=== PATIENT | male | born 1940 | race Hispanic/Latino ===

== ENCOUNTER → 2018-03-02 | Outpatient (CLI) | payer MEDICARE | END | disposition home or self-care (01) | LOC: SHCH 15:47 | PROVIDERS: ATTEND Internal Medicine Cardiovascular Disease | DX: I35.1 Nonrheumatic aortic (valve) insufficiency (principal); I48.0 Paroxysmal atrial fibrillation; I10 Essential (primary) hypertension; E11.9 Type 2 diabetes mellitus without complications | CPT/HCPCS: 93306 ==

== ENCOUNTER → 2018-04-07 | Outpatient (CLI) | payer MEDICARE ==
[~2018-04-07] MED LIST: REGADENOSON 0.4 MG/5 ML PF SYG IVP SCH
== END | disposition home or self-care (01) ==
LOC: SHCH 07:47
PROVIDERS: ATTEND Internal Medicine Cardiovascular Disease
DX: R06.09 Other forms of dyspnea (principal); I20.9 Angina pectoris, unspecified; I48.0 Paroxysmal atrial fibrillation
CPT/HCPCS: 78452; 93017; 96374; A9500 ×2; J2785

== ENCOUNTER 2019-03-06 14:46 | Emergency (ER) | payer MEDICARE ==
[~2019-03-06 14:46] MED LIST changes: +AMLO10TA7 PO; +CARV3.1262 PO; +DABI150C PO; +DOXA4TAB3 PO; +LEVO25TA54 PO; +LEVO500T2 PO; +LOSA1TAB37 PO; +METF-446 PO; +METR500T PO; -REGADENOSON 0.4 MG/5 ML PF SYG IVP SCH
[2019-03-06 15:50] LABS: BASOPHILS % (AUTO) 0.7 % (0.0-5.0); EOSINOPHILS % (AUTO) 1.3 % (0.0-8.0); HEMATOCRIT 41.3 % (42-54); LYMPHOCYTES % (AUTO) 12.1 % (21.0-51.0); MEAN CORPUSCULAR HEMOGLOBIN 28.4 pg (27.0-33.0); MEAN CORPUSCULAR HGB CONC 34.2 g/dL (32.0-36.0); MEAN CORPUSCULAR VOLUME 83.2 fL (79-99); NEUTROPHILS % (AUTO) 78.9 % (40.0-77.0); PLATELET COUNT (AUTO) 214 K/uL (130-400); RED BLOOD CELL COUNT(AUTO) 4.96 MIL/uL (4.50-6.20); RED CELL DISTRIBUTION WIDTH 16.1 % (11.0-15.5); WHITE BLOOD COUNT (AUTO) 8.1 K/uL (4.8-10.8)
[2019-03-06 16:05] LABS: CREATININE 1.1 mg/dL (0.5-1.5); POTASSIUM 3.5 mmol/L (3.5-5.1)
[2019-03-06 16:10] LABS: BILIRUBIN,DIRECT 0.1 mg/dL (0.0-0.3); BILIRUBIN,TOTAL 0.4 mg/dL (0.2-1.0); TOTAL PROTEIN, SERUM 6.4 g/dL (6.0-8.3)
[2019-03-06 16:27] LABS: B-TYPE NATRIURETIC PEPTIDE 264 pg/mL (0-100)
[2019-03-06] MEDS ORDERED: SODIUM CHLORIDE 0.9% 1000ML 1,000 ML IV ONE (17:46)
== END 2019-03-06 18:37 | disposition home or self-care (01) ==
LOC: EDH 14:46
DX: E86.9 Volume depletion, unspecified (principal); R63.0 Anorexia; R11.2 Nausea with vomiting, unspecified; I48.91 Unspecified atrial fibrillation; I10 Essential (primary) hypertension; E11.9 Type 2 diabetes mellitus without complications
CPT/HCPCS: 36415; 80048; 80076; 82550; 83880; 84484; 85025; 93005; 99285; J7030

== ENCOUNTER 2022-10-22 09:21 | Emergency (ER) | payer OTHER ==
[~2022-10-22] VITALS: Ht 152.4 cm; Wt 73.5 kg
[~2022-10-22 09:21] MED LIST changes: +AMLO-258 PO; -AMLO10TA7 PO; +APIX5TAB PO; -CARV3.1262 PO; -DABI150C PO; +FINA5TAB41 PO; +IPRNEB IH; -LEVO500T2 PO; +LORA10TA7 PO; -LOSA1TAB37 PO; +METO50TA9 PO; -METR500T PO; +OLME20TA22 PO
[2022-10-22 09:52] LABS: BASOPHILS % (AUTO) 0.6 % (0.0-5.0); EOSINOPHILS % (AUTO) 1.8 % (0.0-8.0); HEMATOCRIT 33.2 % (42-54); LYMPHOCYTES % (AUTO) 9.2 % (21.0-51.0); MEAN CORPUSCULAR HEMOGLOBIN 25.6 pg (27.0-33.0); MEAN CORPUSCULAR HGB CONC 32.2 g/dL (32.0-36.0); MEAN CORPUSCULAR VOLUME 79.4 fL (79-99); MONOCYTES % (AUTO) 8.8 % (3.0-13.0); NEUTROPHILS % (AUTO) 79.2 % (40.0-77.0); PLATELET COUNT (AUTO) 173 K/uL (130-400); RED BLOOD CELL COUNT(AUTO) 4.18 MIL/uL (4.50-6.20); WHITE BLOOD COUNT (AUTO) 7.7 K/uL (4.8-10.8)
[2022-10-22 10:17] LABS: ALBUMIN 3.5 g/dL (3.5-5.0); B-TYPE NATRIURETIC PEPTIDE 331 pg/mL (0-100); MAGNESIUM 1.4 mg/dL (1.80-2.40); POTASSIUM 4.9 mmol/L (3.5-5.1); TOTAL PROTEIN, SERUM 6.9 g/dL (6.0-8.3)
[2022-10-22] MEDS ORDERED: LACT10SO5 PO (12:25)
[2022-10-22 12:30] VITALS: BP 117/62
== END 2022-10-22 12:39 | disposition home or self-care (01) ==
LOC: EDH 09:21
DX: K59.00 Constipation, unspecified (principal); I11.0 Hypertensive heart disease with heart failure; I50.9 Heart failure, unspecified; E11.9 Type 2 diabetes mellitus without complications; E78.00 Pure hypercholesterolemia, unspecified; Z20.822 Contact with and (suspected) exposure to COVID-19; Z79.84 Long term (current) use of oral hypoglycemic drugs; Z79.899 Other long term (current) drug therapy; Z98.890 Other specified postprocedural states
CPT/HCPCS: 99285; 74176; 71045; 87635; 83735; 84484; 80053; 83880; 85025; 87804 ×2; 36415; 93005; C9803

== ENCOUNTER → 2022-10-29 | Outpatient (CLI) | payer OTHER ==
[~2022-10-29] MED LIST changes: +LACT10SO5 PO
[2022-10-29 14:43] LABS: POTASSIUM 4.8 mmol/L (3.5-5.1)
== END | disposition home or self-care (01) ==
LOC: LAB 08:43
PROVIDERS: ATTEND Internal Medicine Cardiovascular Disease
DX: I50.33 Acute on chronic diastolic (congestive) heart failure (principal); I71.21 Aneurysm of the ascending aorta, without rupture
CPT/HCPCS: 36415; 80048; 83880

== ENCOUNTER → 2022-12-25 | Outpatient (CLI) | payer OTHER ==
[~2022-12-25] MED LIST changes: +AMOX1TAB16 PO; +GUAI5LIQ13 PO; +PRED20TA3 PO
== END | disposition home or self-care (01) ==
LOC: SHCH 13:32
PROVIDERS: ATTEND Internal Medicine Cardiovascular Disease
DX: I08.3 Combined rheumatic disorders of mitral, aortic and tricuspid valves (principal); I25.10 Atherosclerotic heart disease of native coronary artery without angina pectoris; R06.09 Other forms of dyspnea; I71.21 Aneurysm of the ascending aorta, without rupture
CPT/HCPCS: 93306

== ENCOUNTER 2022-12-27 10:09 | Emergency (ER) | payer OTHER ==
[~2022-12-27] VITALS: Ht 162.6 cm; Wt 70.8 kg
[~2022-12-27 10:09] MED LIST changes: -AMOX1TAB16 PO; -GUAI5LIQ13 PO; -PRED20TA3 PO
[2022-12-27 10:56] LABS: BASOPHILS % (AUTO) 0.6 % (0.0-5.0); EOSINOPHILS % (AUTO) 3.5 % (0.0-8.0); HEMATOCRIT 39.1 % (42-54); LYMPHOCYTES % (AUTO) 7.4 % (21.0-51.0); MEAN CORPUSCULAR HEMOGLOBIN 25.9 pg (27.0-33.0); MEAN CORPUSCULAR HGB CONC 32.2 g/dL (32.0-36.0); MEAN CORPUSCULAR VOLUME 80.3 fL (79-99); MONOCYTES % (AUTO) 7.3 % (3.0-13.0); NEUTROPHILS % (AUTO) 80.9 % (40.0-77.0); PLATELET COUNT (AUTO) 184 K/uL (130-400); RED BLOOD CELL COUNT(AUTO) 4.87 MIL/uL (4.50-6.20); WHITE BLOOD COUNT (AUTO) 11.1 K/uL (4.8-10.8)
[2022-12-27 11:17] LABS: ALBUMIN 3.6 g/dL (3.5-5.0); POTASSIUM 3.7 mmol/L (3.5-5.1); TOTAL PROTEIN, SERUM 7.1 g/dL (6.0-8.3)
[2022-12-27 11:38] LABS: B-TYPE NATRIURETIC PEPTIDE 322 pg/mL (0-100)
[2022-12-27] MEDS ORDERED: IPRATROPIUM/ALBUTEROL SULFATE 3 ML SOLUTION IH ONE ×2 (12:30→16:30)
[2022-12-27 12:55] VITALS: PULSE 70
[2022-12-27] MEDS ORDERED: SOLU-MEDROL 125MG VIAL IVP ONE (13:30)
[2022-12-27] MEDS ORDERED: SOLU-MEDROL 125MG VIAL ONE (13:36)
[2022-12-27 16:18] VITALS: PULSE 73
[2022-12-27] MEDS ORDERED: PRED20TA3 PO ×2 (16:27→16:30)
[2022-12-27] MEDS ORDERED: AMOX1TAB16 PO (16:27)
[2022-12-27] MEDS ORDERED: GUAI5LIQ13 PO (16:27)
[2022-12-27 16:30] VITALS: BP 142/87; PULSE 76; RESP 16; O2SAT 96
== END 2022-12-27 17:45 | disposition home or self-care (01) ==
LOC: EDH 10:09
DX: J20.9 Acute bronchitis, unspecified (principal); I48.91 Unspecified atrial fibrillation; E11.9 Type 2 diabetes mellitus without complications; E78.00 Pure hypercholesterolemia, unspecified; Z79.01 Long term (current) use of anticoagulants; Z79.890 Hormone replacement therapy; Z79.899 Other long term (current) drug therapy; Z20.822 Contact with and (suspected) exposure to COVID-19
CPT/HCPCS: 99285; 96374; 71045; 87635; 84484; 80053; 83880; 85025; 87804 ×2; 36415; 93005; 94640 ×2; C9803; J2930

== ENCOUNTER → 2023-02-15 | Outpatient (CLI) | payer OTHER ==
[~2023-02-15] MED LIST changes: +AMOX1TAB16 PO; +GUAI5LIQ13 PO; +PRED20TA3 PO; +REGADENOSON 0.4 MG/5 ML PF SYG IVP ONE
== END | disposition home or self-care (01) ==
LOC: SHCH 08:18
PROVIDERS: ATTEND Internal Medicine Cardiovascular Disease
DX: I48.0 Paroxysmal atrial fibrillation (principal); R06.09 Other forms of dyspnea; I25.10 Atherosclerotic heart disease of native coronary artery without angina pectoris; I51.7 Cardiomegaly
CPT/HCPCS: 78452; 96374; 93017; J2785; A9500 ×2

== ENCOUNTER 2023-12-14 09:37 | Emergency (ER) | payer OTHER ==
[~2023-12-14] VITALS: Ht 167.6 cm; Wt 71.2 kg
[~2023-12-14 09:37] MED LIST changes: +AMLO-257 PO; -AMLO-258 PO; -AMOX1TAB16 PO; +AZIT250T9 PO; +BRIM5DRO5 OU; +CARV3.12 PO; +CEFD300C3 PO; -DOXA4TAB3 PO; -FINA5TAB41 PO; +FURO20TA4 PO; -IPRNEB IH; +IRON1CAP30 PO; -LACT10SO5 PO; -LEVO25TA54 PO; +LEVO50TA11 PO; +LIGH1DRO OU; -LORA10TA7 PO; -METF-446 PO; -METO50TA9 PO; -OLME20TA22 PO; +POTA-200 PO; -PRED20TA3 PO; -REGADENOSON 0.4 MG/5 ML PF SYG IVP ONE
[2023-12-14 10:22] LABS: BASOPHILS # (AUTO) 0.05 K/uL (0.00-0.20); BASOPHILS % (AUTO) 0.7 % (0.0-5.0); EOSINOPHILS # (AUTO) 0.39 K/uL (0.00-0.70); EOSINOPHILS % (AUTO) 5.2 % (0.0-8.0); HEMATOCRIT 40.6 % (42-54); IMMATURE GRANULOCYTE ABSOLUTE 0.02 K/uL (0-1); LYMPHOCYTES # (AUTO) 1.3 K/uL (1.0-4.8); LYMPHOCYTES % (AUTO) 17.2 % (21.0-51.0); MEAN CORPUSCULAR HEMOGLOBIN 27.2 pg (27.0-33.0); MEAN CORPUSCULAR HGB CONC 32.5 g/dL (32.0-36.0); MEAN CORPUSCULAR VOLUME 83.7 fL (79-99); MONOCYTES # (AUTO) 0.7 K/uL (0.1-1.0); MONOCYTES % (AUTO) 8.7 % (3.0-13.0); NEUTROPHILS # (AUTO) 5.1 K/uL (1.8-7.7); NEUTROPHILS % (AUTO) 67.9 % (40.0-77.0); PLATELET COUNT (AUTO) 175 K/uL (130-400); RED BLOOD CELL COUNT(AUTO) 4.85 MIL/uL (4.50-6.20); RED CELL DISTRIBUTION WIDTH 16.4 % (11.0-15.5); WHITE BLOOD COUNT (AUTO) 7.5 K/uL (4.8-10.8)
[2023-12-14 10:26] LABS: CREATININE 1.1 mg/dL (0.5-1.3); POTASSIUM 4.8 mmol/L (3.5-5.1)
[2023-12-14 10:43] LABS: B-TYPE NATRIURETIC PEPTIDE 251 pg/mL (0-100)
[2023-12-14 11:37] LABS: INFLUENZA TYPE A Negative For Type A (NEGATIVE); INFLUENZA TYPE B Negative For Type B (NEGATIVE)
[2023-12-14 11:52] LABS: SARS-CoV-2, RNA, NAAT NEGATIVE SARS CoV-2 (NEGATIVE)
[2023-12-14 12:13] LABS: ADD UA MICROSCOPIC NO; APPEARANCE,URINE CLEAR (CLEAR); BILIRUBIN,URINE NEGATIVE (NEGATIVE); COLOR,URINE COLORLESS (YELLOW); GLUCOSE, URINE (UA) NEGATIVE (NEGATIVE); KETONES,URINE NEGATIVE (NEGATIVE); LEUKOCYTE ESTERASE ,URINE NEGATIVE Leu/uL (NEGATIVE); NITRATE,URINE NEGATIVE (NEGATIVE); OCCULT BLOOD,URINE NEGATIVE (NEGATIVE); PROTEIN,URINE NEGATIVE (NEGATIVE); UROBILINOGEN,URINE 0.2 mg/dL (0.2-1.0)
[2023-12-14 13:17] VITALS: BP 160/74; PULSE 78; RESP 16; O2SAT 98
== END 2023-12-14 13:24 | disposition home or self-care (01) ==
LOC: EDH 09:37
DX: J20.9 Acute bronchitis, unspecified (principal); I10 Essential (primary) hypertension; E11.9 Type 2 diabetes mellitus without complications; Z79.899 Other long term (current) drug therapy; Z20.822 Contact with and (suspected) exposure to COVID-19
CPT/HCPCS: 36415; 71045; 80048; 81003; 82550; 83880; 84484; 85025; 87635; 87804; 93005

== ENCOUNTER → 2024-08-06 | Outpatient (CLI) | payer OTHER ==
[~2024-08-06] MED LIST changes: -GUAI5LIQ13 PO; +GUAI5SYR10 PO
--- NOTE | 2024-08-12 13:20 | HMCSR ---
APPROVED REPORT EXAM: Two-dimensional and M-mode echocardiogram with Doppler and color Doppler. INDICATION ICD: i71.21 2D Dimensions RVDd3.8 cmLVEF(%)50.3 (>50%)LVED Vol(simp.)138.0 mL IVSd1.3 (0.7-1.1cm)FS(%)26 %LVES Vol(simp.)68.0 mL LVDd6.0 (3.8-5.6cm)LA (2D)4.8 (1.6-4.0cm)LVEF(%, simp.)51 % PWd1.3 (0.7-1.1cm)Ao Root(2D)4.2 (2.0-3.7cm)LA ESV INDEX (BP)83.18 mL/m2 LVDs4.5 (2.5-4.0cm)LVOT diam2.3 (1.8-2.4cm) IVC diam1.7 cm Aortic Valve AoV Vmax1.4 m/Aysha Peak GR8.4 mmHgLVOT Vmax1.0 m/s AoV VTI0.3 mAo Mean GR4.2 mmHgLVOT VTI0.19 m KALEIGH (VMAX)2.9 cm2Al P1/2T815 msAVA (VTI) 2.9 cm2 Mitral Valve MV E Vmax91.3 cm/sDECEL Bwyi185 msMV Peak GR4 mmHg MV A Vmax36.2 cm/sP 1/2 T59 msMV Mean GR1 mmHg E/A ratio2.5MVA (PHT)3.7 cm2MR LGV008 cm2 MR Max PG128 mmHgMR Mean PG84 mmHg TDI E/E' Oklexr67.9E/E' Lateral9.0 Pulmonary Valve PV Vmax1.0 m/sPV VTI0.21 mPV Mean GR2 mmHg PV Peak GR3.7 mmHgPI End Shavon. Long 1.3 cm/s Tricuspid Valve TR Vmax2.3 m/sRAP (EST) 8 olOnSVPL60.0 mmHg TR Peak GR21.0 mmHg Left Ventricle Left ventricular cavity size is normal. There is normal LV segmental wall motion. There is mild bong ntric left ventricular hypertrophy. LVEF is 50-55%. Stage I diastolic dysfunction. Right Ventricle The right ventricle is normal size. The right ventricular systolic function is normal. Atria The left atrium is severely dilated. PFO is noted. The right atrium is severely dilated. Aortic Valve Aortic valve is trileaflet. Aortic valve leaflets are sclerotic but open well. Moderate aortic regurg itation. There is no aortic valvular stenosis. Mitral Valve Miitral valve leaflets are sclerotic but open well. Mitral regurgitation is mild to moderate. There i s no mitral valve stenosis. Tricuspid Valve The tricuspid valve leaflets appear normal. There is mild tricuspid regurgitation. Pulmonic Valve The pulmonic valve leaflets appear normal. There is trace pulmonic valvular regurgitation. Great Vessels The aortic root is mildly to moderately enlarged. IVC is dilated and collapses >50% with inspiration. Pericardium No pericardial effusion. Conclusion LVEF is 50-55%. There is normal LV segmental wall motion. Stage I diastolic dysfunction. There is mild concentric left ventricular hypertrophy. The left atrium is severely dilated. Moderate aortic regurgitation. Mitral regurgitation is mild to moderate. PFO is noted.
== END | disposition home or self-care (01) ==
LOC: SHCH 15:02
PROVIDERS: ATTEND Internal Medicine Cardiovascular Disease
DX: I08.3 Combined rheumatic disorders of mitral, aortic and tricuspid valves (principal); Q21.12 Patent foramen ovale; I71.21 Aneurysm of the ascending aorta, without rupture
CPT/HCPCS: 93306

== ENCOUNTER 2025-03-07 22:05 | Emergency (ER) | payer OTHER ==
[~2025-03-07] VITALS: Ht 162.6 cm; Wt 71.2 kg
[~2025-03-07 22:05] MED LIST changes: +ALBU1.252 IH; -AMLO-257 PO; -AZIT250T9 PO; -BRIM5DRO5 OU; -CEFD300C3 PO; -GUAI5SYR10 PO; -IRON1CAP30 PO; +LATA2.5D7 OU; -LEVO50TA11 PO; -LIGH1DRO OU; -POTA-200 PO
--- NOTE | 2025-03-07 22:50 | NUR ---
PATITO AND AT BEDSIDE.
--- NOTE | 2025-03-07 22:53 | HMCIMG ---
EXAM: CT Cervical Spine Without IV contrast. CLINICAL HISTORY: Trauma. TECHNIQUE: Axial computed tomography images of the cervical spine without intravenous contrast. Sagittal and coronal reformatted images were generated. COMPARISON: None provided. FINDINGS: Motion artifact limits the optimal evaluation. ALIGNMENT: Bony alignment is anatomic. DEGENERATIVE CHANGES: Moderate to severe cervical spondylosis is evident by marginal osteophytes at multiple levels, facet joint arthropathy, and uncovertebral hypertrophy. There is a straightening of the cervical spine that may represent paraspinal muscle spasm. 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 Multilevel severe reduction in the intervertebral disc heights. Multilevel endplate sclerosis. Disc osteophyte complex bulge at the C3-C4 level, resulting in severe right and moderate left neural foraminal narrowing, with possible impingement of exiting nerve roots. Disc osteophyte complex bulge at the C4-C5 level, resulting in severe bilateral neural foramina narrowing, with possible impingement of the exiting nerve roots. Disc osteophyte complex bulge at the C5-C6 level, resulting in severe bilateral neural foramina narrowing, with possible impingement of the exiting nerve roots. Disc osteophyte complex bulge at the C6-C7 level, resulting in moderate bilateral neural foraminal narrowing, more pronounced on the left side, with possible impingement of exiting nerve roots. SOFT TISSUES: The prevertebral soft tissues are within normal limits. BONES: No acute fracture or aggressive appearing osseous lesion. IMPRESSION: No acute cervical spine abnormality. Moderate to severe cervical spondylosis with multilevel disc osteophyte complex bulges as described. Recommend MRI of the cervical spine. /[place]
--- NOTE | 2025-03-07 22:54 | HMCIMG ---
EXAM: CT Head Without IV contrast. CLINICAL HISTORY: Trauma. TECHNIQUE: Axial computed tomography images of the head/brain without intravenous contrast. COMPARISON: CT dated February 18, 2025. FINDINGS: BRAIN: Age-appropriate cerebral atrophy. Confluent hypodensities in bilateral fronto-parietal white matter. 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 No evidence of acute hemorrhage. No mass lesion. No CT evidence for acute territorial infarct. No midline shift or extra-axial collections. VENTRICLES: No hydrocephalus. ORBITS: The orbits are unremarkable. SINUSES AND MASTOIDS: The paranasal sinuses and mastoid air cells are clear. BONES: Unremarkable. SOFT TISSUES: Unremarkable. IMPRESSION: No acute intracranial abnormality. Age-appropriate cerebral atrophy and chronic small vessel ischemic changes. No interval changes since the prior CT. /[place]
--- NOTE | 2025-03-07 22:59 | ERN ---
General Chief Complaint: Trauma Activation Stated Complaint: FALL FROM W/C TO FLOOR,HIT HEAD,-LOC,ON ELIQUIS Time Seen by MD: 22:11 Source: patient History of Present Illness Initial Comments 84-year-old male on blood thinners fell from his wheelchair to the floor hitting the back of his head on the floor. No loss of consciousness, comes in with no complaints of head pain or neck pain. He is on Eliquis. Patient was declared a trauma on arrival. Stat CT head neck chest abdomen pelvis without contrast was performed. Allergies: Coded Allergies: No Known Drug Allergies (Unverified Allergy, Unknown, 04/06/18) Home Meds Reported Medications Latanoprost (Latanoprost) 0.005 % Drops, 1 DROP OU HS, ML 0 Refills 02/18/25 Albuterol Sulfate (Albuterol Sulfate) 1.25 Mg/3 Ml Vial.neb, 1.25 MG IH Q4HPRN PRN for SOB WHEEZING, INH 02/14/25 Carvedilol (Carvedilol) 3.125 Mg Tablet, 1 TAB PO BID for 30 Days, #60 TAB 0 Refills 02/13/25 Furosemide (Furosemide) 20 Mg Tablet, 1 TAB PO BID for 30 Days, #30 TAB 0 Refills 02/13/25 Apixaban (Eliquis) 5 Mg Tablet, 1 TAB PO BID for 30 Days, #60 TAB 0 Refills 02/13/25 Discontinued Reported Medications Doxazosin Mesylate (Doxazosin Mesylate) 1 Mg Tablet, 1 TAB PO DAILY for 30 Days, #30 TAB 0 Refills 02/13/25 Metformin HCl (Metformin HCl) 1,000 Mg Tablet, 1 TAB PO BID for 30 Days, #60 TAB 0 Refills 02/13/25 Potassium Chloride (Potassium Chloride) 10 Meq Capsule.er, 1 CAP PO DAILY for 30 Days, #30 CAP 0 Refills 02/13/25 Olmesartan Medoxomil (Olmesartan Medoxomil) 20 Mg Tablet, 1 TAB PO DAILY for 30 Days, #30 TAB 0 Refills 02/13/25 Amlodipine Besylate (Amlodipine Besylate) 10 Mg Tablet, 1 TAB PO DAILY for 30 Days, #30 TAB 0 Refills 02/13/25 Finasteride (Finasteride) 5 Mg Tablet, 1 TAB PO DAILY for 30 Days, #30 TAB 0 Refills 02/13/25 Past Medical History Past Medical History: A-Fib, Diabetes-Type II, Hypertension Medical History Other: SKIN CA Past Surgical History: Unknown Family History Family History: Negative Social History Social History: Lives with family Constitutional: (-) chills, (-) diaphoresis, (-) fever, (-) malaise, (-) weakness, (-) other documentation EENTM: (-) eye pain, (-) blurred vision, (-) tearing, (-) double vision, (-) ear pain, (-) ear discharge, (-) nose pain, (-) nose congestion, (-) throat pain, (-) Throat swelling, (-) mouth pain, (-) tooth pain, (-) mouth swelling, (-) other documentation Respiratory: (-) cough, (-) orthopnea, (-) short of breath, (-) stridor, (-) wheezing, (-) other documentation Cardiovascular: (-) chest pain, (-) edema, (-) palpitations, (-) syncope, (-) dyspnea on exertion, (-) other documentation Gastrointestinal/Abdominal: (-) nausea, (-) vomiting, (-) diarrhea, (-) abdominal pain, (-) abdominal distention, (-) constipation, (-) rectal bleeding, (-) dark stool/melena, (-) other documentation Genitourinary: (-) penile discharge, (-) dysuria, (-) frequency, (-) hematuria, (-) pain, (-) other documentation Musculoskeletal: (-) Neck pain, (-) back pain, (-) Flank Pain, (-) joint pain, (-) joint swelling, (-) muscle pain, (-) muscle stiffness, (-) gout, (-) other documentation Skin: (-) laceration, (-) contusion, (-) abrasion, (-) abscess, (-) rash, (-) change in color, (-) change in hair, (-) change in nails, (-) diaphoresis, (-) dryness, (-) other documentation Neuro: (-) altered mental status, (-) headache, (-) syncope, (-) paralysis, (-) numbness, (-) seizure, (-) pre-existing deficit, (-) tremors, (-) weakness, (-) dizziness, (-) slurred speech, (-) vertigo, (-) other documentation Physical Exam General Appearance: (+) no apparent distress Orientation: (+) alert Head/Face Trauma: No Eye: bilateral eye normal inspection, bilateral eye PERRL, bilateral eye EOMI Ear, Nose, Throat: (+) hearing grossly normal, (+) normal ENT inspection, (+) moist mucous membraine Neck: (+) normal inspection, (+) supple, (+) full range of motion, (+) non- tender Neck Comment Has no midline tenderness and no cervical pain along his C-spine. No pain in the paraspinous muscles either. Respiratory: (+) chest non-tender, (+) lungs clear, (+) well ventilated Heart: (+) regular, (+) no gallop Vascular: (+) no edema, (+) normal peripheral pulse Gastrointestinal: (+) soft, (+) non-tender, (+) bowel sound present Results Laboratory and Microbiology Lab and Micro Result Laboratory Tests Test 03/07/25 22:38 White Blood Count 8.6 K/uL (4.8-10.8) Red Blood Count 3.62 MIL/uL (4.50-6.20) L Hemoglobin 10.2 g/dL (14.0-18.0) L Hematocrit 32.2 % (42-54) L Mean Corpuscular Volume 89.0 fL (79-99) Mean Corpuscular Hemoglobin 28.2 pg (27.0-33.0) Mean Corpuscular Hemoglobin Concent 31.7 g/dL (32.0-36.0) L Red Cell Distribution Width 20.8 % (11.0-15.5) H Platelet Count 192 K/uL (130-400) Mean Platelet Volume 10.5 fL (7.5-10.5) Immature Granulocyte % (Auto) 0.5 % (0-1) Neutrophils (%) (Auto) 79.3 % (40.0-77.0) H Lymphocytes (%) (Auto) 9.7 % (21.0-51.0) L Monocytes (%) (Auto) 7.9 % (3.0-13.0) Eosinophils (%) (Auto) 2.1 % (0.0-8.0) Basophils (%) (Auto) 0.5 % (0.0-5.0) Neutrophils # (Auto) 6.9 K/uL (1.8-7.7) Lymphocytes # (Auto) 0.8 K/uL (1.0-4.8) L Monocytes # (Auto) 0.7 K/uL (0.1-1.0) Eosinophils # (Auto) 0.18 K/uL (0.00-0.70) Basophils # (Auto) 0.04 K/uL (0.00-0.20) Absolute Immature Granulocyte (auto 0.04 K/uL (0-1) Nucleated Red Blood Cells 0.0 % (0.0-0.19) Sodium Level 147 mmol/L (136-145) H Potassium Level 4.0 mmol/L (3.5-5.1) Chloride Level 110 mmol/L (101-111) Carbon Dioxide Level 27 mmol/L (21-32) Blood Urea Nitrogen 29 mg/dL (7-18) H Creatinine 1.5 mg/dL (0.5-1.3) H Glomerular Filtration Rate Calc 45 mL/min (>90) Random Glucose 161 mg/dL (70-105) H Total Calcium 8.7 mg/dL (8.5-10.1) Total Bilirubin 0.8 mg/dL (0.2-1.0) Aspartate Amino Transf (AST/SGOT) 18 U/L (10-37) Alanine Aminotransferase (ALT/SGPT) 14 U/L (12-78) Alkaline Phosphatase 66 U/L (50-136) Total Protein 6.1 g/dL (6.0-8.3) Albumin 2.6 g/dL (3.5-5.0) L MDM Stat CT head neck chest abdomen pelvis ordered without contrast. In addition I ordered a CBC. None of the patient's head shows no intra cerebral hemorrhage no fractures. CT scan of the patient's neck negative for fractures. CT scan of the patient's chest abdomen pelvis shows no acute injuries. CBC shows mild anemia. Patient himself is clinically stable vital signs answers questions appropriately, moves all extremities. Patient is safe to be discharged back to his facility. ED Course Orders Procedure Category Date Status Time Ct Head/Brain W/O CT 03/07/25 Resulted Contrast 22:08 Ct Cervical Spine W/O CT 03/07/25 Resulted Contrast 22:08 Ct Chest/Abd/Pelv W/O CT 03/07/25 Resulted Contrast 22:08 Comprehensive LAB 03/07/25 In Process Metabolic Panel 22:20 Basic Metabolic Panel LAB 03/07/25 In Process 22:20 Cbc With Differential LAB 03/07/25 In Process 22:20 Urinalysis Profile LAB 03/07/25 Logged 22:20 Vital Signs Date Time Temp Pulse Resp B/P (MAP) Pulse Ox O2 Delivery O2 Flow Rate FiO2 03/07/25 22:32 74 20 140/74 97 Room Air* 0 21 03/07/25 22:09 99.3 70 25 131/78 96 Room Air 0 DX & DISP Disposition: Discharge Departure Impression: Primary Impression: Ground-level fall Condition: Stable Additional Instructions: You fell from your wheelchair and struck the back of your head. Our workup here shows no evidence of bleeding in your head neck chest abdomen or pelvis. You are safe to be discharged back to your rehab facility. Please feel free to return if you have worsening headaches dizziness decreased blood pressure difficulty eating shortness of breath. Referrals: PASCALE SABA (PCP) ULYSSES MARTINEZ MD Mar 07, 2025 22:59
--- NOTE | 2025-03-07 23:10 | HMCIMG ---
EXAM: CT Chest, Abdomen, and Pelvis Without IV contrast CLINICAL HISTORY: Trauma. TECHNIQUE: Axial computed tomography images of the chest, abdomen, and pelvis without intravenous contrast. CONTRAST: None. COMPARISON: CT abdomen dated October 22, 2022. FINDINGS: CHEST: LUNGS: There are patchy ground-glass densities in the right upper and lower lobes. Mild bibasilar atelectasis. No pulmonary mass. The rest of the lungs appear essentially clear. PLEURAL SPACES: No evidence of pneumothorax. Small pleural effusions bilaterally, more pronounced on the right side. HEART: Cardiomegaly. Mild pericardial effusion. Coronary artery calcifications. Aortic valve calcifications. Atherosclerotic wall calcifications in the arch and descending thoracic aorta. There is mild dilatation of the ascending aorta measuring up to 4.8 cm. Mild ectatic descending thoracic aorta, the maximum caliber measuring up to 3 cm. LYMPH NODES: No lymphadenopathy is evident. ABDOMEN AND PELVIS: LIVER: Unremarkable. No focal lesions. GALLBLADDER AND BILE DUCTS: The gallbladder appears within normal limits. No radioopaque gallstones are seen. No biliary ductal dilatation is evident. PANCREAS: Unremarkable. SPLEEN: Unremarkable. ADRENAL GLANDS: Unremarkable. KIDNEYS, URETERS, AND BLADDER: Mild bilateral perinephric fat stranding with thickened fascia. Unremarkable. No hydronephrosis or nephrolithiasis. No ureteral or bladder calculi. STOMACH AND BOWEL: Colonic diverticulosis without diverticulitis. Unremarkable appearance of the stomach and the rest of the bowel. No evidence of bowel obstruction. No evidence suggesting enteritis or colitis. A small hiatus hernia. APPENDIX: No evidence of acute appendicitis on CT examination. PERITONEUM: No free fluid. No free air. LYMPH NODES: No lymphadenopathy is evident. VASCULATURE: Atherosclerotic wall calcifications in the abdominal aorta and iliac arteries. BONES: Moderate multilevel degenerative changes in the spine. No acute osseous abnormality. An old depressed fracture of the lateral aspect of the left fourth rib. IMPRESSION: No acute trauma-related intra-thoracic, intra-abdominal, or intra-pelvic abnormality. Cardiomegaly with mild pericardial effusion. Recommend echocardiography correlation. Mild dilatation of the ascending aorta. Small pleural effusions bilaterally, more pronounced on the right side, increased since the prior CT. Mild patchy ground-glass densities in the right upper and lower lobes may represent an infective process. /[place]
[2025-03-07 23:12] LABS: IMMATURE GRANULOCYTE ABSOLUTE 0.04 K/uL (0-1); NUCLEATED RED BLOOD CELLS 0.0 % (0.0-0.19); PLATELET COUNT (AUTO) 192 K/uL (130-400); RED BLOOD CELL COUNT(AUTO) 3.62 MIL/uL (4.50-6.20); RED CELL DISTRIBUTION WIDTH 20.8 % (11.0-15.5); WHITE BLOOD COUNT (AUTO) 8.6 K/uL (4.8-10.8)
[2025-03-07 23:30] LABS: ASPARTATE AMINOTRANSFERASE 18.0 U/L (10-37); CREATININE 1.5 mg/dL (0.5-1.3); GLOMERULAR FILTR. RATE CALC 45.0 mL/min (>90); GLUCOSE,RANDOM 161.0 mg/dL (70-105); SODIUM SERUM 147.0 mmol/L (136-145); TOTAL PROTEIN, SERUM 6.1 g/dL (6.0-8.3); UREA NITROGEN, BLOOD 29.0 mg/dL (7-18)
[2025-03-07 23:38] LABS: WBC MORPHOLOGY CONSISTENT W/DIFF
--- NOTE | 2025-03-07 23:59 | NUR ---
[facility] CONTACTED FOR TRANSFER BACK TO [facility]
--- NOTE | 2025-03-08 | NUR ---
WAITING ON EMS TRANSFER.
--- NOTE | 2025-03-08 00:43 | NUR ---
EMS PRESENT TO TRANSPORT PATIENT.
--- NOTE | 2025-03-08 00:50 | NUR ---
REPORT CALLED TO ABAD CLAIRE LVN NURSE [facility].
[2025-03-08 00:52] VITALS: BP 134/76; PULSE 75; RESP 20; TEMP 98.2; O2SAT 98
== END 2025-03-08 00:53 ==
LOC: EDH 22:05
DX: R51.9 Headache, unspecified (principal); E11.9 Type 2 diabetes mellitus without complications; I10 Essential (primary) hypertension; I48.91 Unspecified atrial fibrillation; Z79.01 Long term (current) use of anticoagulants; Z79.84 Long term (current) use of oral hypoglycemic drugs; Z79.899 Other long term (current) drug therapy; W07.XXXA Fall from chair, initial encounter; Y93.89 Activity, other specified; Y92.89 Other specified places as the place of occurrence of the external cause; Y99.8 Other external cause status
CPT/HCPCS: 36415; 70450; 71250; 72125; 74176; 80053; 85025; 99284; 99285